=== PATIENT | male | born 1975 | race Two or more races ===

== ENCOUNTER 2019-06-24 17:19 | Emergency (ER) | payer OTHER ==
[~2019-06-24] VITALS: Ht 162.6 cm; Wt 100.6 kg
[2019-06-24 21:57] VITALS: BP 143/84
== END 2019-06-24 22:12 | disposition short-term general hospital (02) ==
LOC: ED 20:29 → UNDOADMIN 20:30 → EDIP 20:30 → ED 22:12
DX: I63.311 Cerebral infarction due to thrombosis of right middle cerebral artery (principal); E11.65 Type 2 diabetes mellitus with hyperglycemia; I10 Essential (primary) hypertension
CPT/HCPCS: 70450; 71045; 80053; 82962; 84484; 85025; 85610; 85730; 93005; 99285